=== PATIENT | female | born 1935 | race Caucasian/White ===

== ENCOUNTER → 2016-03-21 | Outpatient (CLI) | payer MEDICARE, BC ==
--- NOTE | 2016-03-21 11:32 | BD ---
EXAMINATION TYPE: MG DEXA axial skeleton. DATE OF EXAM: 03/21/2016 11:03 AM CLINICAL HISTORY: Height: 65 inches Weight: 167 FRAX RISK QUESTIONS: Alcohol (3 or more units per day): no Family History (Parent hip fracture): no Glucocorticoids (More than 3mos): no (Ex: prednisone, prednisolone, methylprednisolone, dexamethasone, and hydrocortisone). History of Fracture in Adulthood: no Secondary Osteoporosis: 1. Type 1 Diabetes: no 2. Hyperthyroidism: unsure 3. Menopause before 45: no 4. Malnutrition: no 5. Chronic liver disease: no Rheumatoid Arthritis: no Current Tobacco Use: no RISK FACTORS HISTORY OF: History of Fracture: no Family History of Osteoporosis: perhaps sister Smoke tobacco: stopped many years ago Drink Alcohol: just socially & infrequently Active: yes Diet low in dairy products/other sources of calcium: at least one serving a day Postmenopausal woman: no Take estrogen and/or progesterone medications: no Lost more than 2 inches in height since high school: states was perhaps 67 inches at one time Frequent falls: no Poor Health: no Hyperparathyroidism: unsure Adrenal Insufficiency: no MEDICATIONS: Prednisone or other steroids: no Thyroid Medications: yes Which medication: unsure How Long: just started about 3 months ago Osteoporosis Medications: no Additional Medications: cholesterol meds, blood pressure meds, calcium EXAM MEASUREMENTS: Bone mineral densitometry was performed using the [employer] System. Bone mineral density as measured about the Lumbar spine is: ----- L1-L4(G/cm2): 1.286 T Score Values are as follows: ----- L2: -0.3 ----- L3: 1.8 ----- L4: 1.8 ----- L1-L4: 0.9 Bone mineral density not previously done at this facility; previously done at office of a physician Bone mineral density about the R hip (g/cm2): 0.874 Bone mineral density about the L hip (g/cm2): 0.934 T Score values are as follows: -----R Neck: -1.2 -----L Neck: -0.7 -----R Intertrochanter: -1.2 -----L Intertrochanter: -0.8 Bone mineral density not previously done at this facility; previously done at office of physician IMPRESSION: Normal (Values between +1 and -1 indicate normal bone mass) Lumbar Spine & Left Hip Osteopenia (T Score between -2.5 and -1 as noted by T score values Right Hip There is slightly increased risk of fracture and the patient may be considered for treatment. Re-Screen 1-2 years. NOTE: T-SCORE=SD OF THE YOUNG ADULT MEAN.
--- NOTE | 2016-03-22 09:35 | MM ---
Reason for exam: screening (asymptomatic). Last mammogram was performed 1 year and 4 months ago. History: Patient is postmenopausal. Family history of premenopausal breast cancer in sister at age 50. Physical Findings: A clinical breast exam by your physician is recommended on an annual basis and results should be correlated with mammographic findings. MG 3D Screening Mammo W/Cad Bilateral CC and MLO view(s) were taken. Prior study comparison: November 24, 2014, bilateral MG screening mammo w CAD. October 29, 2013, bilateral MG screening mammo w CAD. There are scattered fibroglandular densities. There is no discrete abnormality. No significant changes when compared with prior studies. ASSESSMENT: Negative, BI-RAD 1 RECOMMENDATION: Routine screening mammogram of both breasts in 1 year.
== END | disposition home or self-care (01) ==
LOC: RADMAMWWP 09:37
PROVIDERS: ATTEND Internal Medicine
DX: Z12.31 Encounter for screening mammogram for malignant neoplasm of breast (principal); M85.80 Other specified disorders of bone density and structure, unspecified site; N95.1 Menopausal and female climacteric states
CPT/HCPCS: 77080; 77063; G0202

== ENCOUNTER → 2017-03-22 | Outpatient (CLI) | payer MEDICARE, BC ==
--- NOTE | 2017-03-23 10:45 | MM ---
Reason for exam: screening (asymptomatic). Last mammogram was performed 1 year ago. History: Patient is postmenopausal. Family history of premenopausal breast cancer in sister at age 50. Physical Findings: A clinical breast exam by your physician is recommended on an annual basis and results should be correlated with mammographic findings. MG 3D Screening Mammo W/Cad Bilateral CC and MLO view(s) were taken. Prior study comparison: March 21, 2016, bilateral MG 3d screening mammo w/cad. November 24, 2014, bilateral MG screening mammo w CAD. There are scattered fibroglandular densities. Finding: There are typically benign vascular calcifications in both breasts. There is no discrete abnormality. ASSESSMENT: Benign, BI-RAD 2 RECOMMENDATION: Routine screening mammogram of both breasts in 1 year.
== END | disposition home or self-care (01) ==
LOC: RADMAMWWP 10:28
PROVIDERS: ATTEND Internal Medicine
DX: Z12.31 Encounter for screening mammogram for malignant neoplasm of breast (principal)
CPT/HCPCS: 77063; 77067

== ENCOUNTER → 2018-04-23 | Outpatient (CLI) | payer MEDICARE ==
--- NOTE | 2018-04-24 10:40 | MM ---
Reason for exam: screening (asymptomatic). Last mammogram was performed 1 year and 1 month ago. History: Patient is postmenopausal. Family history of premenopausal breast cancer in sister at age 50. Took hormonal contraceptives for 6 months. Physical Findings: A clinical breast exam by your physician is recommended on an annual basis and results should be correlated with mammographic findings. MG Screening Mammo w CAD Bilateral CC and MLO view(s) were taken. Prior study comparison: March 22, 2017, bilateral MG 3d screening mammo w/cad. March 21, 2016, bilateral MG 3d screening mammo w/cad. There are scattered fibroglandular densities. Benign appearing bilateral calcifications. No significant changes when compared with prior studies. ASSESSMENT: Benign, BI-RAD 2 RECOMMENDATION: Routine screening mammogram of both breasts in 1 year.
== END | disposition home or self-care (01) ==
LOC: RADMAMWWP 09:38
PROVIDERS: ATTEND Internal Medicine
DX: Z12.31 Encounter for screening mammogram for malignant neoplasm of breast (principal)
CPT/HCPCS: 77067

== ENCOUNTER 2021-07-24 12:05 | Inpatient (IN) | payer MEDICARE ==
--- NOTE | 2021-07-24 13:15 | ED ---
General Adult HPI - General Chief complaint: Fall Stated complaint: fall Time Seen by Provider: 07/24/21 13:06 Source: patient, family, RN notes reviewed Mode of arrival: ambulatory Limitations: no limitations - History of Present Illness Initial comments: Patient is a pleasant 85-year-old female presenting to the emergency department with discomfort of right ribs.Please use medication as discussed. Please follow-up with family doctor in the next 2 days of symptoms have not improved. Please return to emergency room if the symptoms increase or worsen or for any other concerns. Accidentally rolled out of bed while sleeping last night. Patient is having discomfort of right posterior ribs since that time. Discomfort increases with position changes and deep breath. Patient also struck her nose. Patient is only having minimal discomfort of the nose area. Patient does not recall the episode well. Patient was sleeping when this occurred. No dyspnea. No other area of injury or concern. - Related Data Home Medications Medication Instructions Recorded Confirmed Atorvastatin Calcium [Lipitor] 10 mg PO DAILY 10/18/13 10/18/13 Allergies Allergy/AdvReac Type Severity Reaction Status Date / Time morphine AdvReac Nausea & Verified 07/24/21 13:02 Vomiting Review of Systems ROS Statement: Those systems with pertinent positive or pertinent negative responses have been documented in the HPI. ROS Other: All systems not noted in ROS Statement are negative. Constitutional: Denies: fever Eyes: Denies: eye pain ENT: Denies: ear pain Respiratory: Denies: cough, dyspnea Cardiovascular: Denies: chest pain Endocrine: Denies: fatigue Gastrointestinal: Denies: abdominal pain Genitourinary: Denies: dysuria Musculoskeletal: Reports: as per HPI, back pain Skin: Denies: rash Neurological: Denies: headache, weakness, confusion Past Medical History Past Medical History: Hyperlipidemia History of Any Multi-Drug Resistant Organisms: None Reported Past Surgical History: Hysterectomy Past Psychological History: No Psychological Hx Reported Past Alcohol Use History: None Reported Past Drug Use History: None Reported General Exam Limitations: no limitations General appearance: alert, in no apparent distress Head exam: Present: normocephalic, other (Minimal soft tissue swelling and tenderness near the bridge of the nose.) Eye exam: Present: normal appearance, PERRL, EOMI. Absent: nystagmus ENT exam: Present: normal oropharynx Neck exam: Present: normal inspection. Absent: tenderness Respiratory exam: Present: normal lung sounds bilaterally Cardiovascular Exam: Present: regular rate, normal rhythm GI/Abdominal exam: Present: soft. Absent: tenderness Extremities exam: Present: normal inspection, full ROM. Absent: tenderness Back exam: Present: tenderness (Mild tenderness right posterior mid ribs). Absent: vertebral tenderness Neurological exam: Present: alert, CN II-XII intact. Absent: motor sensory deficit Expanded Motor strength exam: RUE: 5, LUE: 5, RLE: 5, LLE: 5 Psychiatric exam: Present: normal affect, normal mood Skin exam: Present: normal color Course Vital Signs 07/24/21 13:00 Temperature 98.2 F Pulse Rate 84 Respiratory 18 Rate Blood Pressure 201/89 O2 Sat by Pulse 96 Oximetry Medical Decision Making - Medical Decision Making Patient reevaluated and resting complain bed. Patient family updated on results and follow-up. - Radiology Data Radiology results: report reviewed (CT brain shows no acute process), image reviewed (Chest and right rib x-rays reveal no acute process) Disposition Clinical Impression: Fall, Rib contusion Disposition: HOME SELF-CARE Condition: Stable Instructions (If sedation given, give patient instructions): Fall Prevention (E D), Head Injury (ED), Rib Contusion (ED) Additional Instructions: Please follow-up to primary care physician in the next day or 2 for recheck. Return for difficulty breathing, confusion, weakness, worsening or changing symptoms or other concerns. Is patient prescribed a controlled substance at d/c from ED?: No Referrals: Aurora Bentley MD [Primary Care Provider] - 1-2 days Time of Disposition: 14:33
--- NOTE | 2021-07-24 13:58 | XR ---
EXAMINATION TYPE: XR ribs RT w pa chest xray DATE OF EXAM: 07/24/2021 COMPARISON: 10/13/2010 HISTORY: Fall, pain TECHNIQUE: AP chest. 2 views right RIBS FINDINGS: No displaced rib fractures are evident. No pneumothorax is evident. Heart size is normal. Pulmonary vasculature is normal. Lungs are clear. IMPRESSION: 1. No acute displaced rib fractures. Follow-up studies can be performed as clinically indicated.
--- NOTE | 2021-07-24 14:01 | CT ---
EXAMINATION TYPE: CT brain wo con DATE OF EXAM: 07/24/2021 COMPARISON: None INDICATION: Fall DLP: 1145.4 mGycm, Automated exposure control for dose reduction was used. CONTRAST: None CT of the brain is performed utilizing 3 mm thick sections through the posterior fossa and 3 mm thick sections through the remaining calvarium. Study is performed within 24 hours of arrival to the hosp ital. No abnormal hyperdensity is present to suggest an acute intracranial hemorrhage. No mass lesion is evident. No acute infarcts are evident. 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 Periventricular white matter hypodensity is present which can be compatible with microvascu lar ischemic change. MRI is available if follow-up evaluation of symptoms would be of benefit. Ventricles and sulci are prominent for the patient age. There is a patent cavum septum pellucidum, n ormal variant. Paranasal sinuses and mastoid air cells within the [id number] are clear. No acute fractures are ev ident. IMPRESSIONS: 1. Atrophy with chronic appearing periventricular white matter ischemic changes. MRI is available i f additional evaluation would be of benefit.
[2021-07-24] MEDS ORDERED: traMADol 50 MG STARTER PACK 3 TAB BTL PO STA (14:33)
[2021-07-24] MEDS ORDERED: SODIUM CHLORIDE 0.9% 1,000 ML IV STA (15:13)
[2021-07-24] MEDS ORDERED: FAMOTIDINE 20 MG/2 ML VIAL IV STA (15:14)
[2021-07-24] MEDS ORDERED: NALOXONE 0.4 MG/ML 1 ML VIAL IV PRN (15:29)
--- NOTE | 2021-07-24 15:29 | ED ---
Medical Decision Making - Medical Decision Making Family states patient has been generally weak and not eating or drinking well. They do not feel comfortable with discharge home. Patient has been vomiting and weak and fall risk. Case discussed with Dr. Bentley who will admit his patient. Disposition Clinical Impression: Fall, Rib contusion, Weakness Disposition: ADMITTED IP TO THIS [facility] Condition: Stable Instructions (If sedation given, give patient instructions): Head Injury (ED), Fall Prevention (ED), Rib Contusion (ED) Additional Instructions: Please follow-up to primary care physician in the next day or 2 for recheck. Return for difficulty breathing, confusion, weakness, worsening or changing symptoms or other concerns. Is patient prescribed a controlled substance at d/c from ED?: No Referrals: Aurora Bentley MD [Primary Care Provider] - 1-2 days Time of Disposition: 15:29
[2021-07-24 15:42] LABS: Basophils % (A) 0 %; Eosinophils % (A) 0 %; HCT 42.1 % (34.0-46.0); HGB 13.6 gm/dL (11.4-16.0); Lymphocytes # (A) 0.4 k/uL (1.0-4.8); Lymphocytes % (A) 3 %; MCH 31.6 pg (25.0-35.0); MCHC 32.4 g/dL (31.0-37.0); MCV 97.6 fL (80.0-100.0); Mean Platelet Volume 7.1; Monocytes # (A) 0.6 k/uL (0-1.0); Monocytes % (A) 5 %; Neutrophils # (A) 11.3 k/uL (1.3-7.7); Neutrophils % (A) 90 %; Platelet Count 292 k/uL (150-450); RBC 4.31 m/uL (3.80-5.40); RDW 12.3 % (11.5-15.5); WBC 12.5 k/uL (3.8-10.6)
[2021-07-24 15:57] LABS: INR 0.9 (<1.2); Prothrombin Time 10.2 sec (9.0-12.0)
[2021-07-24 16:15] LABS: Albumin 5.1 g/dL (3.5-5.0); Calcium 9.6 mg/dL (8.4-10.2); Total Bilirubin 0.8 mg/dL (0.2-1.3); Total Protein 8.6 g/dL (6.3-8.2)
[2021-07-24 16:52] LABS: Appearance,Urine Clear (Clear); Bilirubin,Urine Negative (Negative); Blood,Urine Moderate (Negative); Color,Urine Colorless; Glucose,Urine (UA) 2+ (Negative); Ketones,Urine 1+ (Negative); Leukocyte Esterase,Urine Small (Negative); Nitrite,Urine Negative (Negative); PH, Urine 7.5 (5.0-8.0); Protein,Urine 2+ (Negative); RBC,Urine 12 /hpf (0-5); Specific Gravity,Urine 1.008 (1.001-1.035); Urobilinogen,Urine <2.0 mg/dL (<2.0); WBC,Urine 27 /hpf (0-5)
[2021-07-24] MEDS ORDERED: ONDANSETRON 4 MG/2 ML VIAL IVP PRN (19:21)
[2021-07-24] MEDS: HYDROmorphone 0.5 MG/0.5 ML SYRINGE IVP PRN (19:35)
[2021-07-25 08:03] LABS: Basophils % (A) 0 %; Eosinophils % (A) 0 %; HCT 42.9 % (34.0-46.0); HGB 13.9 gm/dL (11.4-16.0); Lymphocytes # (A) 0.6 k/uL (1.0-4.8); Lymphocytes % (A) 4 %; MCH 31.8 pg (25.0-35.0); MCHC 32.4 g/dL (31.0-37.0); MCV 98.1 fL (80.0-100.0); Mean Platelet Volume 7.2; Monocytes # (A) 1.2 k/uL (0-1.0); Monocytes % (A) 8 %; Neutrophils # (A) 12.5 k/uL (1.3-7.7); Neutrophils % (A) 86 %; Platelet Count 286 k/uL (150-450); RBC 4.37 m/uL (3.80-5.40); RDW 12.1 % (11.5-15.5); WBC 14.5 k/uL (3.8-10.6)
[2021-07-25 08:18] LABS: Calcium 9.8 mg/dL (8.4-10.2); Potassium 3.9 mmol/L (3.5-5.1)
[2021-07-25] MEDS: SODIUM CHLORIDE 0.9% 1,000 ML IV SCH ×3 (10:00→19:38)
[2021-07-25] MEDS ORDERED: HEPARIN SODIUM 1,000 UN/ML (10ML VL) IV PRN ×2 (10:17→14:48)
[2021-07-25] MEDS ORDERED: HEPARIN SOD,PORK IN 0.45% NACL 25,000 UNIT in 0.45% NACL 1 250ML.BAG IV SCH (10:30)
[2021-07-25] MEDS: LEVOTHYROXINE 75 MCG TAB PO SCH (11:06)
[2021-07-25] MEDS: PRAVASTATIN SODIUM 20 MG TAB PO SCH (11:06)
[2021-07-25] MEDS: HYDROmorphone 0.5 MG/0.5 ML SYRINGE IVP PRN (11:45)
[2021-07-25] MEDS: LISINOPRIL-HCTZ 10-12.5 MG 1 EACH TAB PO SCH (12:12)
[2021-07-25] MEDS ORDERED: ASPIRIN 81 MG PO STA (12:24)
--- NOTE | 2021-07-25 13:04 | P.HPIM ---
History of Present Illness H&P Date: 07/25/21 Ro Yañez, 85-year-old female who presented to [facility] emergency room chief complaint of facial pain and right ribs pain after falling out of bed and injuring her face and the right side of the chest. In the emergency room patient had multiple episodes of vomiting. She was evaluated in the emergency room vital examination on presentation revealed a temperature of 98.2 pulse 84 respiration 18 and blood pressure 201/89 pulse ox 96% on room air Laboratory data revealed a white blood count 12.5 hemoglobin 13.6 platelet count 292 sodium 138 potassium 4.0 chloride 102 CO2 25 BUN 14 creatinine 0.84 lactic acid was elevated at 2.5 troponin level was elevated at 0.095 urine analysis revealed evidence of urinary tract infection. Testing in the emergency room revealed computed tomography scan of the brain done in the emergency room without contrast revealed evidence of atrophy was chronic appearing periventricular white matter ischemic changes no evidence of intracranial bleeding, chest x-ray and right sided ribs x-ray did not reveal any evidence of acute displaced fracture the lungs are clear. Patient was admitted to medical floor for further evaluation and treatment. Past Medical History Past Medical History: Hyperlipidemia History of Any Multi-Drug Resistant Organisms: None Reported Past Surgical History: Hysterectomy Past Psychological History: No Psychological Hx Reported Past Alcohol Use History: None Reported Past Drug Use History: None Reported Medications and Allergies Home Medications Medication Instructions Recorded Confirmed Type Diphenoxylate HCl/Atropine 1 tab PO DAILY PRN 07/24/21 07/24/21 History [Lomotil 2.5-0.025 mg Tablet] Ergocalciferol [Vitamin D2 (1250 1,250 mcg PO FR 07/24/21 07/24/21 History Mcg = 06463 Iu)] Levothyroxine Sodium [Synthroid] 75 mcg PO DAILY 07/24/21 07/24/21 History Lisinopril-Hctz 10-12.5 mg 1 tab PO DAILY 07/24/21 07/24/21 History [Zestoretic 10-12.5] Pravastatin Sodium [Pravachol] 20 mg PO DAILY 07/24/21 07/24/21 History Allergies Allergy/AdvReac Type Severity Reaction Status Date / Time morphine AdvReac Nausea & Verified 07/24/21 15:52 Vomiting Physical Exam Vitals: Vital Signs Temp Pulse Pulse Resp BP BP Pulse Ox 07/25/21 02:00 98.5 F 80 16 166/89 96 07/24/21 21:02 71 18 164/81 94 L 07/24/21 13:00 98.2 F 84 18 201/89 96 Intake and Output 07/24/21 07/25/21 07/25/21 22:59 06:59 14:59 Intake Total 250 Balance 250 Intake: Oral 250 Other: # Voids 1 In general patient is alert and oriented x 3 in no distress HEENT head normocephalic and atraumatic Neck is supple no JVD no goiter no lymphadenopathy no carotid bruit Chest examination is clear to auscultation no crackles no wheezing Cardiac exam reveals regular heart sounds S1 and S2 no gallops no murmurs Abdomen is soft nontender no organomegaly with normal bowel sounds Extremity exam reveals no edema no cyanosis or clubbing Neurological examination reveals no gross focal deficits Results CBC & Chem 7: 07/25/21 07:30 07/25/21 07:30 Labs: Abnormal Lab Results - Last 24 Hours (Table) 07/24/21 07/24/21 07/24/21 Range/Units 15:13 15:13 15:13 WBC 12.5 H (3.8-10.6) k/uL Neutrophils # 11.3 H (1.3-7.7) k/uL Lymphocytes # 0.4 L (1.0-4.8) k/uL Monocytes # (0-1.0) k/uL Sodium (137-145) mmol/L Glucose 161 H (74-99) mg/dL Plasma Lactic Acid Leonardo 2.5 H* (0.7-2.0) mmol/L Troponin I (0.000-0.034) ng/mL Total Protein 8.6 H (6.3-8.2) g/dL Albumin 5.1 H (3.5-5.0) g/dL Urine Protein (Negative) Urine Glucose (UA) (Negative) Urine Ketones (Negative) Urine Blood (Negative) Ur Leukocyte Esterase (Negative) Urine RBC (0-5) /hpf Urine WBC (0-5) /hpf 07/24/21 07/24/21 07/25/21 Range/Units 15:13 16:35 07:30 WBC 14.5 H (3.8-10.6) k/uL Neutrophils # 12.5 H (1.3-7.7) k/uL Lymphocytes # 0.6 L (1.0-4.8) k/uL Monocytes # 1.2 H (0-1.0) k/uL Sodium (137-145) mmol/L Glucose (74-99) mg/dL Plasma Lactic Acid Leonardo (0.7-2.0) mmol/L Troponin I 0.095 H* (0.000-0.034) ng/mL Total Protein (6.3-8.2) g/dL Albumin (3.5-5.0) g/dL Urine Protein 2+ H (Negative) Urine Glucose (UA) 2+ H (Negative) Urine Ketones 1+ H (Negative) Urine Blood Moderate H (Negative) Ur Leukocyte Esterase Small H (Negative) Urine RBC 12 H (0-5) /hpf Urine WBC 27 H (0-5) /hpf 07/25/21 07/25/21 Range/Units 07:30 07:30 WBC (3.8-10.6) k/uL Neutrophils # (1.3-7.7) k/uL Lymphocytes # (1.0-4.8) k/uL Monocytes # (0-1.0) k/uL Sodium 134 L (137-145) mmol/L Glucose 119 H (74-99) mg/dL Plasma Lactic Acid Leonardo (0.7-2.0) mmol/L Troponin I 0.878 H* (0.000-0.034) ng/mL Total Protein (6.3-8.2) g/dL Albumin (3.5-5.0) g/dL Urine Protein (Negative) Urine Glucose (UA) (Negative) Urine Ketones (Negative) Urine Blood (Negative) Ur Leukocyte Esterase (Negative) Urine RBC (0-5) /hpf Urine WBC (0-5) /hpf Assessment and Plan Plan: Fall from bed with head trauma and chest trauma Possible sepsis as evidenced by leukocytosis, elevated lactic acid, and evidence of urinary tract infection, patient has positive leukocyte esterase and 27 white cells in high power field Elevated troponin level, could be related to chest trauma, serial troponin were ordered, echocardiogram ordered, cardiology consultation requested Underlying history of hypertension Underlying history of hypothyroidism Underlying history of hyperlipidemia Underlying history of vitamin D deficiency At this time patient will be admitted to telemetry floor. Home medications reviewed and reordered Serial EKG and cardiac enzymes are ordered, echocardiogram and cardiology consultation requested In regard to urinary tract infection was possible sepsis, patient was started on IV Rocephin, will monitor closely In regards to episodes of vomiting will check amylase and lipase, will treat symptomatically For DVT prophylaxis we will use subcu Lovenox Will follow closely
[2021-07-25 13:35] LABS: Amylase 56 U/L (30-110); Lipase 67 U/L (23-300)
[2021-07-25] MEDS ORDERED: HEPARIN SODIUM 1,000 UN/ML (10ML VL) IV ONE (14:48)
[2021-07-25] MEDS: METOPROLOL TARTRATE 25 MG TAB PO SCH ×2 (15:11→19:56)
[2021-07-25] MEDS: HEPARIN SOD,PORK IN 0.45% NACL 25,000 UNIT in 0.45% NACL 1 250ML.BAG IV SCH (15:32)
--- NOTE | 2021-07-25 18:21 | CT ---
EXAMINATION TYPE: CT brain wo con DATE OF EXAM: 07/25/2021 COMPARISON: CT head 07/24/2021 HISTORY: weakness CT DLP: 1102.4 mGycm. Automated Exposure Control for Dose Reduction was Utilized. TECHNIQUE: Multiple contiguous axial CT images of the head were performed from the skull base through the vertex without the administration of intravenous contrast. 2-D sagittal and coronal reformats we re obtained. FINDINGS: Mild diffuse cerebral atrophy. Moderate burden of decreased attenuation within the periventricular an d deep white matter bilaterally, likely sequela of chronic small vessel ischemic change. Unchanged ch ronic lacunar infarct of the right caudate. No acute intracranial hemorrhage, mass effect, or midline shift. No CT evidence of acute large vessel territorial ischemic changes. Thomason-white differentiation is otherwise preserved. No hydrocephalus. C avum septum pellucidum and vergae is present. Calvarium appears unremarkable. Visualized paranasal sinuses and mastoid air cells are clear. Bilater al lens extractions are present. IMPRESSION: 1. No acute intracranial process. 2. Chronic senescent changes.
[2021-07-26] MEDS: LEVOTHYROXINE 75 MCG TAB PO SCH (06:20)
[2021-07-26] MEDS: SODIUM CHLORIDE 0.9% 1,000 ML IV SCH ×2 (06:24→20:36)
[2021-07-26 07:57] LABS: Partial Thromboplastin Time 55.8 sec (22.0-30.0); Prothrombin Time 10.7 sec (9.0-12.0)
[2021-07-26 08:01] LABS: Basophils % (A) 0 %; Eosinophils # (A) 0.1 k/uL (0-0.7); Eosinophils % (A) 1 %; HCT 45.1 % (34.0-46.0); HGB 14.9 gm/dL (11.4-16.0); Lymphocytes # (A) 0.9 k/uL (1.0-4.8); Lymphocytes % (A) 7 %; MCH 32.6 pg (25.0-35.0); MCHC 33.1 g/dL (31.0-37.0); MCV 98.3 fL (80.0-100.0); Mean Platelet Volume 7.8; Monocytes # (A) 1.1 k/uL (0-1.0); Monocytes % (A) 10 %; Neutrophils # (A) 9.5 k/uL (1.3-7.7); Neutrophils % (A) 80 %; Platelet Count 295 k/uL (150-450); RBC 4.59 m/uL (3.80-5.40); RDW 12.7 % (11.5-15.5); WBC 11.8 k/uL (3.8-10.6)
[2021-07-26] MEDS ORDERED: ENOXAPARIN 40 MG/0.4 ML SYRINGE SQ SCH (09:00)
--- NOTE | 2021-07-26 09:32 | P.PN ---
Subjective Progress Note Date: 07/26/21 Ro Yañez, 85-year-old female who presented to [facility] emergency room chief complaint of facial pain and right ribs pain after falling out of bed and injuring her face and the right side of the chest. In the emergency room patient had multiple episodes of vomiting. She was evaluated in the emergency room vital examination on presentation revealed a temperature of 98.2 pulse 84 respiration 18 and blood pressure 201/89 pulse ox 96% on room air Laboratory data revealed a white blood count 12.5 hemoglobin 13.6 platelet count 292 sodium 138 potassium 4.0 chloride 102 CO2 25 BUN 14 creatinine 0.84 lactic acid was elevated at 2.5 troponin level was elevated at 0.095 urine analysis revealed evidence of urinary tract infection. Testing in the emergency room revealed computed tomography scan of the brain done in the emergency room without contrast revealed evidence of atrophy was chronic appearing periventricular white matter ischemic changes no evidence of intracranial bleeding, chest x-ray and right sided ribs x-ray did not reveal any evidence of acute displaced fracture the lungs are clear. Patient was admitted to medical floor for further evaluation and treatment. On 09/25/2021 patient is resting comfortably in bed. Patient remains on heparin drip for elevated troponins. Cardiology services are following. Patient remains on IV Rocephin for urinary tract infection. White blood cell is trending down. White blood cell level 11.8. Current vitals temp 98.3, heart rate 76, respiratory rate 18, blood pressure 135/75 with pulse ox of 96% on room air. 2-D echo has been ordered. At this time patient denies chest pain or shortness breath. Patient denies nausea vomiting or diarrhea. Patient denies any urinary burning or frequency Objective - Vital Signs Vital signs: Vital Signs Temp 98.3 F 07/26/21 03:15 Pulse 76 07/26/21 03:15 Resp 18 07/26/21 03:15 BP 135/75 07/26/21 03:15 Pulse Ox 96 07/26/21 03:15 FiO2 Intake & Output 07/25/21 07/26/21 07/26/21 18:59 06:59 18:59 Intake Total 470 76.059 360 Balance 470 76.059 360 Weight 72.575 kg Intake: IV 350 Sodium Chloride 0.9% 1, 300 000 ml @ 75 mls/hr IV . [id number] RUBIO Rx#:[id number] cefTRIAXone 1 gm In 50 Sodium Chloride 0.9% 50 ml @ 100 mls/hr IVPB Q24HR RUBIO Rx#:[id number] Intake, IV Titration 76.059 Amount Heparin Sod,Pork in 0.45% 76.059 NaCl 25,000 unit In 0.45 % NaCl 1 250ml.bag @ 12 UNITS/KG/HR 8.709 mls/hr IV .Q24H RUBIO Rx#: [id number] Oral 120 360 Other: Voiding Method Toilet # Voids 1 1 1 # Bowel Movements 0 - Exam In general patient is alert and oriented x 3 in no distress HEENT head normocephalic and atraumatic Neck is supple no JVD no goiter no lymphadenopathy no carotid bruit Chest examination is clear to auscultation no crackles no wheezing Cardiac exam reveals regular heart sounds S1 and S2 no gallops no murmurs Abdomen is soft nontender no organomegaly with normal bowel sounds Extremity exam reveals no edema no cyanosis or clubbing Neurological examination reveals no gross focal deficits - Labs CBC & Chem 7: 07/26/21 06:59 07/25/21 07:30 Labs: Abnormal Lab Results - Last 24 Hours (Table) 07/25/21 07/25/21 07/26/21 Range/Units 12:54 18:09 06:59 WBC 11.8 H (3.8-10.6) k/uL Neutrophils # 9.5 H (1.3-7.7) k/uL Lymphocytes # 0.9 L (1.0-4.8) k/uL Monocytes # 1.1 H (0-1.0) k/uL APTT (22.0-30.0) sec Troponin I 1.450 H* 1.240 H* (0.000-0.034) ng/mL 07/26/21 Range/Units 06:59 WBC (3.8-10.6) k/uL Neutrophils # (1.3-7.7) k/uL Lymphocytes # (1.0-4.8) k/uL Monocytes # (0-1.0) k/uL APTT 55.8 H (22.0-30.0) sec Troponin I (0.000-0.034) ng/mL Microbiology - Last 24 Hours (Table) 07/24/21 16:35 Urine Culture - Preliminary Urine,Voided Assessment and Plan Plan: Fall from bed with head trauma and chest trauma Possible sepsis as evidenced by leukocytosis, elevated lactic acid, and evidence of urinary tract infection, patient has positive leukocyte esterase and 27 white cells in high power field Elevated troponin level, could be related to chest trauma, serial troponin were ordered, echocardiogram ordered, cardiology consultation requested Underlying history of hypertension Underlying history of hypothyroidism Underlying history of hyperlipidemia Underlying history of vitamin D deficiency At this time patient will be admitted to telemetry floor. Home medications reviewed and reordered Patient currently on heparin drip Cardiology neurology services are following In regard to urinary tract infection was possible sepsis, patient was started on IV Rocephin, will monitor closely Amylase and lipase within normal limits PT OT and social work services consulted for discharge planning For DVT prophylaxis we will use subcu Lovenox Will follow closely
[2021-07-26] MEDS: PRAVASTATIN SODIUM 20 MG TAB PO SCH (09:56)
[2021-07-26] MEDS: LISINOPRIL-HCTZ 10-12.5 MG 1 EACH TAB PO SCH (09:56)
[2021-07-26] MEDS: METOPROLOL TARTRATE 25 MG TAB PO SCH ×2 (09:57→20:37)
[2021-07-26] MEDS: ASPIRIN 81 MG PO SCH (09:57)
--- NOTE | 2021-07-26 11:54 | P.CRDCN ---
History of Present Illness History of present illness: HISTORY OF PRESENTING ILLNESS This is a pleasant 85-year-old female past medical history significant for hyperlipidemia, hypothyroidism, hypertension. She does not follow with a concert pianist. We have been asked to see in consultation for elevated troponin. Patient presents to the emergency room with right ribs pain and a fall in the middle of the night at 3AM out of bed. She states for 2 weeks she has been having right sided rib and right lower back pain. Exacerbated by movement. She s tates yesterday overnight, in the middle of sleeping she thinks she "rolled out of bed" and was on the ground. Her woke her up and helped her up and she was brought to the ER. Her right rib pain has resolved. She denies any chest pain, shortness of breath, diaphoresis, lightheadedness, dizziness, syncope or near syncope. She did have episodes of nausea and vomiting in the ER which resolved. She denies any history of CAD, PR, Stroke or diabetes. On admission patient was hypertensive with SBP 200s. DIAGNOSTICS EKG reveals Sinus rhythm HR 80, no acute ST-T wave abnormalities. Telemetry tracings indicate sinus rhythm with HR 60s-70s Chest xray no acute cardiopulmonary process R ribs- no fracture Brain CT- no acute intracranial process Laboratory reviewed, WBC 14.5, Trop 0.87-->1.4-->1.2. Current cardiac medications include pravastatin 20 mg daily, lisinoprilhydrochlorothiazide 1012.5 mg daily. REVIEW OF SYSTEMS At the time of my exam: CONSTITUTIONAL: Denies fever or chills. CARDIOVASCULAR: Denies chest pain, shortness of breath, orthopnea, PND or palpitations. RESPIRATORY: Denies cough. GASTROINTESTINAL: Denies abdominal pain, diarrhea, constipation, nausea or vomit ing. MUSCULOSKELETAL: Denies myalgias. NEUROLOGIC: Denies numbness, tingling, headacbe or weakness. ENDOCRINE: Denies fatigue, weight change, polydipsia or polyurina. GENITOURINARY: Denies burning, hematuria or urgency with micturation. HEMATOLOGIC: Denies history of anemia or bleeding. PHYSICAL EXAMINATION Blood pressure 135/75, heart rate 76, afebrile, saturations 96% on room air CONSTITUTIONAL: No apparent distress. HEENT: Head is normocephalic. Pupils are equal, round. Sclerae anicteric. Mucous membranes of the mouth are moist. No JVD. No carotid bruit. CHEST EXAMINATION: Lungs are clear to auscultation. No chest wall tenderness is noted on palpation or with deep breathing. HEART EXAMINATION: Regular rate and rhythm. S1, S2 heard. No murmurs, gallops or rub. ABDOMEN: Soft, nontender. Positive bowel sounds. EXTREMITIES: 2+ peripheral pulses, no lower extremity edema and no calf tenderness. NEUROLOGIC EXAMINATION: Patient is awake, alert and oriented x3. ASSESSMENT Elevated troponin, no evidence of ischemia on EKG. Patient is asymptomatic no chest pain Fall at home Hyperlipidemia Hypothyroidism Hypertension PLAN Obtain 2D echocardiogram and doppler study to assess cardiac structure and function. Continue IV heparin for 24 hours. Continue aspirin, lisinopril-hctz, statin, metoprolol tartrate and statin Further recommendations based on clinical course Nurse practitioner note has been reviewed by physician. Signing provider agrees with the documented findings, assessment, and plan of care. Past Medical History Past Medical History: Hyperlipidemia History of Any Multi-Drug Resistant Organisms: None Reported Past Surgical History: Hysterectomy, Tonsillectomy Past Anesthesia/Blood Transfusion Reactions: No Reported Reaction Past Psychological History: No Psychological Hx Reported Smoking Status: Former smoker Past Alcohol Use History: None Reported Past Drug Use History: None Reported Medications and Allergies Home Medications Medication Instructions Recorded Confirmed Type Diphenoxylate HCl/Atropine 1 tab PO DAILY PRN 07/24/21 07/24/21 History [Lomotil 2.5-0.025 mg Tablet] Ergocalciferol [Vitamin D2 (1250 1,250 mcg PO FR 07/24/21 07/24/21 History Mcg = 93144 Iu)] Levothyroxine Sodium [Synthroid] 75 mcg PO DAILY 07/24/21 07/24/21 History Lisinopril-Hctz 10-12.5 mg 1 tab PO DAILY 07/24/21 07/24/21 History [Zestoretic 10-12.5] Pravastatin Sodium [Pravachol] 20 mg PO DAILY 07/24/21 07/24/21 History Allergies Allergy/AdvReac Type Severity Reaction Status Date / Time morphine AdvReac Nausea & Verified 07/24/21 15:52 Vomiting Physical Exam Vitals: Vital Signs Temp Pulse Pulse Resp BP Pulse Ox 07/26/21 03:15 98.3 F 76 18 135/75 96 07/25/21 23:00 67 17 167/78 97 07/25/21 19:40 98.6 F 77 18 133/73 97 07/25/21 14:00 87 14 166/79 07/25/21 13:31 98.4 F 70 93 14 160/97 94 L 07/25/21 12:00 153/77 07/25/21 10:30 98.2 F 76 17 166/98 98 07/25/21 09:20 93 14 Intake and Output 07/25/21 07/26/21 07/26/21 22:59 06:59 14:59 Intake Total 120 76.059 Balance 120 76.059 Intake: Intake, IV Titration 76.059 Amount Heparin Sod,Pork in 0.45% 76.059 NaCl 25,000 unit In 0.45 % NaCl 1 250ml.bag @ 12 UNITS/KG/HR 8.709 mls/hr IV .Q24H [facility] Rx#: [id number] Oral 120 Other: Voiding Method Toilet Toilet # Voids 2 1 Weight 72.575 kg Results 07/26/21 06:59 07/25/21 07:30 Cardiac Enzymes 07/25/21 07/25/21 07/25/21 Range/Units 07:30 12:54 18:09 Troponin I 0.878 H* 1.450 H* 1.240 H* (0.000-0.034) ng/mL Coagulation 07/25/21 Range/Units 23:02 APTT 28.4 (22.0-30.0) sec CBC 07/25/21 Range/Units 07:30 WBC 14.5 H (3.8-10.6) k/uL RBC 4.37 (3.80-5.40) m/uL Hgb 13.9 (11.4-16.0) gm/dL Hct 42.9 (34.0-46.0) % Plt Count 286 (150-450) k/uL Comprehensive Metabolic Panel 07/25/21 Range/Units 07:30 Sodium 134 L (137-145) mmol/L Potassium 3.9 (3.5-5.1) mmol/L Chloride 99 (98-107) mmol/L Carbon Dioxide 26 (22-30) mmol/L BUN 14 (7-17) mg/dL Creatinine 0.83 (0.52-1.04) mg/dL Glucose 119 H (74-99) mg/dL Calcium 9.8 (8.4-10.2) mg/dL Current Medications Generic Name Dose Route Start Last Admin Trade Name Freq PRN Reason Stop Dose Admin Aspirin 81 mg 07/26/21 09:00 Aspirin 81 Mg PO DAILY [facility] Lisinopril/HCTZ 1 each 07/25/21 10:30 07/25/21 12:12 Lisinopril-Hctz 10-12.5 Mg 1 Each Tab PO 1 each DAILY [facility] Administration Heparin Sodium (Porcine) 0 unit 07/25/21 14:48 07/26/21 00:15 Heparin Sodium 1,000 Un/Ml (10ml Vl) IV 3,600 unit PER PROTOCOL PRN Administration Low PTT Protocol Hydromorphone HCl 0.5 mg 07/24/21 19:18 07/25/21 11:45 Hydromorphone 0.5 Mg/0.5 Ml Syringe IVP 0.5 mg Q6HR PRN Administration Pain Sodium Chloride 1,000 mls @ 75 mls/hr 07/24/21 15:30 07/26/21 06:24 Saline 0.9% IV 75 mls/hr .[id number] [facility] Administration Ceftriaxone Sodium 1 gm/ 50 mls @ 100 mls/hr 07/25/21 10:15 07/25/21 12:14 Sodium Chloride IVPB 100 mls/hr Q24HR [facility] Administration Protocol Heparin Sodium/Sodium Chloride 250 mls @ 8.709 mls/hr 07/25/21 15:00 07/26/21 00:16 25,000 unit/ Sodium Chloride IV 15 units/kg/hr .Q24H [facility] 10.886 mls/hr Titration Protocol 12 UNITS/KG/HR Levothyroxine Sodium 75 mcg 07/25/21 10:00 07/26/21 06:20 Levothyroxine 75 Mcg Tab PO 75 mcg 0630 [facility] Administration Metoprolol Tartrate 25 mg 07/25/21 14:52 07/25/21 19:56 Metoprolol Tartrate 25 Mg Tab PO 25 mg BID [facility] Administration Naloxone HCl 0.2 mg 07/24/21 15:29 Naloxone 0.4 Mg/Ml 1 Ml Vial IV Q2M PRN Opioid Reversal Ondansetron HCl 4 mg 07/24/21 19:21 07/24/21 19:37 Ondansetron 4 Mg/2 Ml Vial IVP 4 mg Q6HR PRN Administration Nausea And Vomiting Pravastatin Sodium 20 mg 07/25/21 10:30 07/25/21 11:06 Pravastatin Sodium 20 Mg Tab PO 20 mg DAILY [facility] Administration Intake and Output 07/25/21 07/26/21 07/26/21 22:59 06:59 14:59 Intake Total 120 76.059 Balance 120 76.059 Intake: Intake, IV Titration 76.059 Amount Heparin Sod,Pork in 0.45% 76.059 NaCl 25,000 unit In 0.45 % NaCl 1 250ml.bag @ 12 UNITS/KG/HR 8.709 mls/hr IV .Q24H [facility] Rx#: [id number] Oral 120 Other: Voiding Method Toilet Toilet # Voids 2 1 Weight 72.575 kg 07/25/21 07:30 07/25/21 07:30
--- NOTE | 2021-07-26 13:46 | CA ---
Transthoracic Echo Report Name: Ro Mcarthur Age: 85 Gender: F : 1935 Exam Date: 07/26/2021 08:54 Exam Location: [place] Echo Ht (in): 67 Wt (lb): 160 Ordering Physician: Aurora Bentley MD Attending/Referring Phys: Personal Insurance Advisor Brit Martinez RDCS Procedure CPT: Indications: elevated troponin Cardiac Hx: Technical Quality: Fair Contrast 1: Total Dose (mL): Contrast 2: Total Dose (mL): MEASUREMENTS (Male / Female) Normal Values 2D ECHO LV Diastolic Diameter PLAX 3.3 cm 4.2 - 5.9 / 3.9 - 5.3 cm LV Systolic Diameter PLAX 2.2 cm IVS Diastolic Thickness 1.7 cm 0.6 - 1.0 / 0.6 - 0.9 cm LVPW Diastolic Thickness 1.5 cm 0.6 - 1.0 / 0.6 - 0.9 cm LV Relative Wall Thickness 1.0 RV Internal Dim ED PLAX 2.3 cm LA Volume 52.4 cm??? 18 - 58 / 22 - 52 cm??? M-MODE Aortic Root Diameter MM 2.8 cm AV Cusp Separation MM 1.5 cm DOPPLER AV Peak Velocity 152.7 cm/s AV Peak Gradient 9.3 mmHg AI Peak Velocity 433.0 cm/s AI Peak Gradient 75.0 mmHg AI Pressure Half Time 527.2 ms LVOT Peak Velocity 77.4 cm/s LVOT Peak Gradient 2.4 mmHg MV Area PHT 3.0 cm??? Mitral E Point Velocity 45.7 cm/s Mitral A Point Velocity 102.5 cm/s Mitral E to A Ratio 0.4 MV Deceleration Time 256.3 ms TR Peak Velocity 246.6 cm/s TR Peak Gradient 24.3 mmHg Right Ventricular Systolic Press 28.7 mmHg FINDINGS Left Ventricle Moderately increased left ventricular wall thickness. Normal left ventricular systolic function with no obvious regional wall motion abnormalities. Left ventricular ejection fraction is estimated at 55-60 %. Right Ventricle Normal right ventricular size and function. Right ventricular systolic pressure within normal limits. Right Atrium Normal right atrial size. Left Atrium Normal left atrial size. No evidence for an atrial septal defect. Mitral Valve Mild mitral annular calcification. Mild mitral regurgitation. Aortic Valve Thickened aortic valve without stenosis. Aortic valve sclerosis. Mild-to- moderate aortic regurgitation. Tricuspid Valve Structurally normal tricuspid valve. Mild tricuspid regurgitation. Pulmonic Valve Structurally normal pulmonic valve. Trace pulmonic regurgitation. Pericardium No pericardial effusion. Aorta Normal size aortic root and proximal ascending aorta. CONCLUSIONS Moderate LVH Normal left ventricular ejection fraction 55-60% Mild aortic valve sclerosis Mild to moderate aortic regurgitation Mild tricuspid regurgitation Mild mitral regurgitation Previewed by: Dr. Jb Kwok DO (Electronically Signed) Final Date: 26 Jul 2021 13:45
--- NOTE | 2021-07-26 14:34 | P.CNNES ---
History of Present Illness Consult date: 07/26/21 Requesting physician: Jb Kwok Reason for Consult: Confusion, post fall History of Present Illness: Patient is a 85-year-old female came to the hospital on 07/24/2021 at 12:05 PM for some mental confusion. Patient apparently rolled over from the bed and fell, hitting her nose on the end table. Patient states that she did not pass out. Patient says that she assumes that she would be awake after a fall, but apparently "her had to wake her up". Patient was noticing pain in the ribs, therefore came to the ER. While in the hospital, it was noticed that patient was confused at times, which prompted this neurology consultation. Per nursing report, she was confused yesterday, but today is fine. Patient has been found to have elevated troponin. Cardiology on board. Patient denies headache, no back pain, no neck pain. Denies any visual symptoms, any numbness tingling or focal weakness. No chest pain, abdominal pain. Patient states that she had fell one more time in the past, several months ago, when she was standing, lost balance and fell on the carpet. Did not hit her head. Patient states that she lives with her , does not use any assistive device like cane or walker. Vital signs on arrival blood pressure 201/89, pulse rate 84 temperature 98.2. Her blood pressure did come down to 166/89 and most recent is 135/75. Patient's blood test shows WBC 12.5 hemoglobin 13.6 platelets are 222. PT/PTT normal, Chem-20 normal. Troponin is elevated 0.878. UA shows small amount of leukocyte Estrace. Moderate ketones. [address] head on arrival showed atrophy with chronic appearing periventricular white matter ischemic changes. MRA is available if additional evaluation would be of benefit. 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 Repeat CT head from yesterday showed no acute process. No change. I reviewed both CT scans of head from 07/24/2021 and 5:30 20 04, and agreed is no change. Small vessel disease. EKG showed sinus rhythm, with voltage criteria for LVH. Chest x-ray showed no acute displaced rib fracture. Home medications include Pravachol 20 mg, vitamin D, lisinopril/HCTZ, levothyroxine. Patient was not taking any antiplatelet medication at home. Patient was given aspirin 324 mg once and now on 81 mg daily. Patient states she drinks wine very occasionally. Does not smoke. She quit smoking 20 years ago and was a light smoker prior. Review of Systems All 14 points of review of system reviewed, unremarkable except as mentioned in HPI. Past Medical History Past Medical History: Hyperlipidemia History of Any Multi-Drug Resistant Organisms: None Reported Past Surgical History: Hysterectomy, Tonsillectomy Past Anesthesia/Blood Transfusion Reactions: No Reported Reaction Past Psychological History: No Psychological Hx Reported Smoking Status: Former smoker Past Alcohol Use History: None Reported Past Drug Use History: None Reported Medications and Allergies Home Medications Medication Instructions Recorded Confirmed Type Diphenoxylate HCl/Atropine 1 tab PO DAILY PRN 07/24/21 07/24/21 History [Lomotil 2.5-0.025 mg Tablet] Ergocalciferol [Vitamin D2 (1250 1,250 mcg PO FR 07/24/21 07/24/21 History Mcg = 32999 Iu)] Levothyroxine Sodium [Synthroid] 75 mcg PO DAILY 07/24/21 07/24/21 History Lisinopril-Hctz 10-12.5 mg 1 tab PO DAILY 07/24/21 07/24/21 History [Zestoretic 10-12.5] Pravastatin Sodium [Pravachol] 20 mg PO DAILY 07/24/21 07/24/21 History Allergies Allergy/AdvReac Type Severity Reaction Status Date / Time morphine AdvReac Nausea & Verified 07/24/21 15:52 Vomiting Physical Examination - Vital Signs Vital Signs: Vital Signs Temp Pulse Pulse Resp BP Pulse Ox 07/26/21 03:15 98.3 F 76 18 135/75 96 07/25/21 23:00 67 17 167/78 97 07/25/21 19:40 98.6 F 77 18 133/73 97 07/25/21 14:00 87 14 166/79 07/25/21 13:31 98.4 F 70 93 14 160/97 94 L 07/25/21 12:00 153/77 07/25/21 10:30 98.2 F 76 17 166/98 98 07/25/21 09:20 93 14 Intake and Output 07/25/21 07/26/21 07/26/21 22:59 06:59 14:59 Intake Total 120 76.059 360 Balance 120 76.059 360 Intake: Intake, IV Titration 76.059 Amount Heparin Sod,Pork in 0.45% 76.059 NaCl 25,000 unit In 0.45 % NaCl 1 250ml.bag @ 12 UNITS/KG/HR 8.709 mls/hr IV .Q24H [facility] Rx#: [id number] Oral 120 360 Other: Voiding Method Toilet Toilet # Voids 2 1 1 # Bowel Movements 0 Weight 72.575 kg Patient is an elderly female, in no acute distress. Patient is alert awake oriented to time place and person. Patient knows it is June and the year is 2021. She thinks she is in "[facility]" in [facility]. She knows name of the current president. Patient has slightly slow mentation. Prolonged latency time to answer questions. Speech and language functions are normal. Patient can name and repeat very well. Atten tion, concentration and fund of knowledge is adequate. On cranial examination, pupils are round and reacting to light, visual heard are full on confrontation, with no neglect. Her extraocular muscles are intact with no nystagmus. Face is symmetric, tongue protrudes to the midline. Palatal elevation and sensation normal, hearing is slightly decreased and shoulder shrug normal, facial sensation normal. Shoulder shrug normal. On muscle strength testing, there is no pronator drift and the strength is normal in arms and legs distally and proximally. Deep tendon reflexes are 1 all over and plantars downgoing. Sensory to touch is equal with no neglect. Cerebellar function showed no ataxia for [id number] testing. Tone and bulk of muscles normal. Gait deferred. On general examination, there is no carotid bruit or murmur, S1-S2 audible. Abdomen is soft nontender. Chest is clear. Peripheral pulses are present. No edema. Results - Laboratory Findings CBC and BMP: 07/26/21 06:59 07/25/21 07:30 Abnormal Lab Findings: Abnormal Labs 07/24/21 07/24/21 07/24/21 15:13 15:13 15:13 WBC 12.5 H Neutrophils # 11.3 H Lymphocytes # 0.4 L Monocytes # APTT Sodium Glucose 161 H Plasma Lactic Acid Leonardo 2.5 H* Troponin I Total Protein 8.6 H Albumin 5.1 H Urine Protein Urine Glucose (UA) Urine Ketones Urine Blood Ur Leukocyte Esterase Urine RBC Urine WBC 07/24/21 07/24/21 07/25/21 15:13 16:35 07:30 WBC 14.5 H Neutrophils # 12.5 H Lymphocytes # 0.6 L Monocytes # 1.2 H APTT Sodium Glucose Plasma Lactic Acid Leonardo Troponin I 0.095 H* Total Protein Albumin Urine Protein 2+ H Urine Glucose (UA) 2+ H Urine Ketones 1+ H Urine Blood Moderate H Ur Leukocyte Esterase Small H Urine RBC 12 H Urine WBC 27 H 07/25/21 07/25/21 07/25/21 07:30 07:30 12:54 WBC Neutrophils # Lymphocytes # Monocytes # APTT Sodium 134 L Glucose 119 H Plasma Lactic Acid Leonardo Troponin I 0.878 H* 1.450 H* Total Protein Albumin Urine Protein Urine Glucose (UA) Urine Ketones Urine Blood Ur Leukocyte Esterase Urine RBC Urine WBC 07/25/21 07/26/21 07/26/21 18:09 06:59 06:59 WBC 11.8 H Neutrophils # 9.5 H Lymphocytes # 0.9 L Monocytes # 1.1 H APTT 55.8 H Sodium Glucose Plasma Lactic Acid Leonardo Troponin I 1.240 H* Total Protein Albumin Urine Protein Urine Glucose (UA) Urine Ketones Urine Blood Ur Leukocyte Esterase Urine RBC Urine WBC Assessment and Plan Assessment: * Altered mental status, unclear etiology. Possible delirium versus mild encephalopathy, now resolved. * Status post fall, possible concussion. * Elevated cardiac enzymes, possible non-STEMI * Hypertension * Hyperlipidemia Plan: * Patient's neurological examination at present is nonfocal. Her mental confusion has resolved. CT head is unremarkable. * We will check carotid Doppler to rule out stenosis. * 2-D echo revealed moderate LVH, normal EF 55-60%, mild aortic valve sclerosis, mild to moderate AR. * B12, folate. TSH is normal. * Cardiology on board for elevated cardiac enzymes. Patient currently on heparin drip. * Tried to contact family members to get collateral history, but patient's or daughter, both were unavailable. Left message on the daughters voicemail. * Neurology will follow. Thank you for the consult.
[2021-07-26] MEDS: HEPARIN SOD,PORK IN 0.45% NACL 25,000 UNIT in 0.45% NACL 1 250ML.BAG IV SCH (15:44)
--- NOTE | 2021-07-26 15:56 | US ---
EXAMINATION TYPE: US carotid duplex BILAT DATE OF EXAM: 07/26/2021 COMPARISON: NONE CLINICAL HISTORY: 85-year-old female confusion, Altered mental status. TECHNIQUE: Carotid duplex ultrasound examination. Indirect Doppler criteria was utilized. FINDINGS: EXAM MEASUREMENTS: RIGHT: Peak Systolic Velocity (PSV) cm/sec ----- Right CCA: 49.4 ----- Right ICA: 65.2 ----- Right ECA: 82.9 ICA/CCA ratio: 1.3 RIGHT: End Diastole cm/sec ----- Right CCA: 7.9 ----- Right ICA: 16.1 ----- Right ECA: 0.0 LEFT: Peak Systolic Velocity (PSV) cm/sec ----- Left CCA: 44.9 ----- Left ICA: 50.7 ----- Left ECA: 96.7 ICA/CCA ratio: 1.1 LEFT: End Diastole cm/sec ----- Left CCA: 6.7 ----- Left ICA: 13.7 ----- Left ECA: 4.2 VERTEBRALS (direction of flow): Right Vertebral: Antegrade Left Vertebral: Antegrade Rhythm: Arrhythmia Health Care Coordinator notes: No significant stenosis IMPRESSION: 1. No hemodynamically significant internal carotid artery stenosis on either side. 2. Note that the survey associate reports an aberrant cardiac rhythm. Further clinical correlation as karson cated. Criteria for Assigning % of Stenosis / Diameter reduction (Estimation based on the indirect measurements of the internal carotid artery velocities (ICA PSV). 1. Normal (no stenosis)=ICA PSV < 125 cm/s: ratio < 2.0: ICA EDV<40 cm/s. 2. Less than 50% stenosis=ICA PSV < 125 cm/s: ratio < 2.0: ICA EDV<40 cm/s. 3. 50 to 69% stenosis=ICA PSV of 125 to 230 cm/s: ration 2.0 ? 4.0: ICA EDV 40-100 cm/s. 4. Greater than 70% stenosis to near occlusion= ICA PSV > 230 cm/s: ratio > 4.0: ICA EDV > 100 cm/s. 5. Near occlusion= ICA PSV velocities may be low or undetectable: variable ratio and ICA EDV. 6. Total occlusion=unable to detect flow.
[2021-07-27] MEDS: LEVOTHYROXINE 75 MCG TAB PO SCH (06:06)
[2021-07-27 08:02] LABS: Basophils # (A) 0.1 k/uL (0-0.2); Basophils % (A) 1 %; Eosinophils # (A) 0.2 k/uL (0-0.7); Eosinophils % (A) 3 %; HCT 40.4 % (34.0-46.0); HGB 13.4 gm/dL (11.4-16.0); Lymphocytes # (A) 0.9 k/uL (1.0-4.8); Lymphocytes % (A) 13 %; MCH 32.8 pg (25.0-35.0); MCHC 33.2 g/dL (31.0-37.0); MCV 98.7 fL (80.0-100.0); Mean Platelet Volume 7.5; Monocytes # (A) 0.5 k/uL (0-1.0); Monocytes % (A) 7 %; Neutrophils # (A) 4.8 k/uL (1.3-7.7); Neutrophils % (A) 73 %; Platelet Count 269 k/uL (150-450); RDW 12.8 % (11.5-15.5); WBC 6.6 k/uL (3.8-10.6)
[2021-07-27 08:19] LABS: Albumin 3.8 g/dL (3.5-5.0); Calcium 9.1 mg/dL (8.4-10.2); Potassium 3.5 mmol/L (3.5-5.1); Total Protein 6.6 g/dL (6.3-8.2)
[2021-07-27] MEDS: LISINOPRIL-HCTZ 10-12.5 MG 1 EACH TAB PO SCH (08:23)
[2021-07-27] MEDS: METOPROLOL TARTRATE 25 MG TAB PO SCH (08:23)
[2021-07-27] MEDS: PRAVASTATIN SODIUM 20 MG TAB PO SCH (08:23)
[2021-07-27] MEDS: ASPIRIN 81 MG PO SCH (08:23)
[2021-07-27] MEDS ORDERED: CYANOCOBALAMIN 1,000 MCG/ML 1 ML VIAL IM SCH (11:15)
--- NOTE | 2021-07-27 11:49 | P.PN ---
Subjective This is a pleasant 85-year-old female past medical history significant for hyperlipidemia, hypothyroidism, hypertension. 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 We have been asked to see in consultation for elevated troponin. Patient presents to the emergency room with right ribs pain and a fall in the middle of the night at 3AM out of bed. She states for 2 weeks she has been having right sided rib and right lower back pain. Exacerbated by movement. She states yesterday overnight, in the middle of sleeping she thinks she "rolled out of bed" and was on the ground. Her woke her up and helped her up and she was brought to the ER. Her right rib pain has resolved. She did have episodes of nausea and vomiting in the ER which resolved. She denies any history of CAD, SC, Stroke or diabetes. On admission patient was hypertensive with SBP 200s. BP has improved with beta david. 07/27/2021 Patient seen and examined at bedside, no acute distress. Denies any chest pain or shortness of breath. Echocardiogram revealed an EF of 5560%, moderate LVH, mild to moderate aortic regurgitation, mild tricuspid regurgitation, mild mitral regurgitation. EKG revealed Sinus rhythm HR 80, no acute ST-T wave abnormalities. Telemetry tracings indicate sinus rhythm with HR 50s-70s, no arrhythmia or significant bradycardia. Patient is currently maintained on aspirin 81 mg daily, lisinopril/hctz thiazide daily, metoprolol titrate 25 mg twice a day PHYSICAL EXAMINATION Blood pressure 126/74, heart rate 74, afebrile, oxygen saturation is 95% room air CONSTITUTIONAL: No apparent distress. HEENT: Neck supple No JVD. CHEST EXAMINATION: Lungs are clear to auscultation. No chest wall tenderness is noted on palpation or with deep breathing. HEART EXAMINATION: Regular rate and rhythm. S1, S2 heard. No murmurs, gallops or rub. ABDOMEN: Soft, nontender. Positive bowel sounds. EXTREMITIES: 2+ peripheral pulses, no lower extremity edema and no calf tenderness. NEUROLOGIC EXAMINATION: Patient is awake, alert and oriented x3. ASSESSMENT Elevated troponin, no evidence of ischemia on EKG. Patient is asymptomatic no chest pain Fall at home Altered mental status on admission, resolved Hyperlipidemia Hypothyroidism Hypertension PLAN Transthoracic echocardiogram reviewed, EF of 5560%, moderate LVH, mild to moderate aortic regurgitation, mild tricuspid regurgitation, mild mitral regurgitation Discontinue IV heparin drip. Continue aspirin, lisinopril-hctz, statin, metoprolol tartrate and statin Patient stable from a cardiology perspective. Will follow the patient as needed. Please reconsult if needed. Nurse practitioner note has been reviewed by physician. Signing provider agrees with the documented findings, assessment, and plan of care. Objective - Vital Signs Vital signs: Vital Signs Temp 97.5 F L 07/27/21 08:00 Pulse 74 07/27/21 08:00 Resp 16 07/27/21 08:00 BP 126/74 07/27/21 08:00 Pulse Ox 95 07/27/21 08:00 FiO2 Intake & Output 07/26/21 07/27/21 07/27/21 18:59 06:59 18:59 Intake Total 1188.37 225 180 Balance 1188.37 225 180 Intake: IV 225 Sodium Chloride 0.9% 1, 225 000 ml @ 75 mls/hr IV . [id number] [facility] Rx#:[id number] Intake, IV Titration 168.37 Amount Heparin Sod,Pork in 0.45% 168.37 NaCl 25,000 unit In 0.45 % NaCl 1 250ml.bag @ 12 UNITS/KG/HR 8.709 mls/hr IV .Q24H [facility] Rx#: [id number] Oral 1020 180 Other: Voiding Method Toilet Toilet # Voids 1 1 1 # Bowel Movements 0 1 - Labs CBC & Chem 7: 07/27/21 07:35 07/27/21 07:35 Labs: Abnormal Lab Results - Last 24 Hours (Table) 07/27/21 07/27/21 07/27/21 Range/Units 07:35 07:35 07:35 Lymphocytes # 0.9 L (1.0-4.8) k/uL APTT 56.0 H (22.0-30.0) sec Chloride 108 H (98-107) mmol/L BUN 22 H (7-17) mg/dL Microbiology - Last 24 Hours (Table) 07/24/21 16:35 Urine Culture - Final Urine,Voided
[2021-07-27 11:50] VITALS: BP 88/55; PULSE 72; RESP 19; TEMP 97.4
== END 2021-07-27 15:37 | disposition home or self-care (01) | DRG 872 ==
LOC: EC 12:05 → 6NMEDSUR 15:30 → 3SCARD 16:58 → OBSVTOIN 07-26 13:12
PROVIDERS: ADMIT Internal Medicine; ATTEND Internal Medicine
DX: A41.9 Sepsis, unspecified organism (principal); N39.0 Urinary tract infection, site not specified; E03.9 Hypothyroidism, unspecified; I10 Essential (primary) hypertension; R79.89 Other specified abnormal findings of blood chemistry; E78.5 Hyperlipidemia, unspecified; S09.92XA Unspecified injury of nose, initial encounter; R29.6 Repeated falls; I25.2 Old myocardial infarction; G31.89 Other specified degenerative diseases of nervous system; S20.219A Contusion of unspecified front wall of thorax, initial encounter; W06.XXXA Fall from bed, initial encounter; Z79.82 Long term (current) use of aspirin; Z79.890 Hormone replacement therapy; Z79.899 Other long term (current) drug therapy; Z86.73 Personal history of transient ischemic attack (TIA), and cerebral infarction without residual deficits; Z87.891 Personal history of nicotine dependence; Z90.710 Acquired absence of both cervix and uterus; Z91.81 History of falling; Z88.5 Allergy status to narcotic agent
CPT/HCPCS: 70450; 80048; 80053; 81001; 82150; 82607; 82746; 83605; 83690; 84443; 84484; 85025; 85610; 85730; 87086; 93005; 93306; 93880; 96365; 96375; 96376; 99285